=== PATIENT | male | born 2000 | race Caucasian/White ===

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

== ENCOUNTER 2021-12-04 04:34 | Emergency (ER) | payer BC ==
[2021-12-04] MEDS ORDERED: DEXAMETHASONE SOD PHOSPHATE 10 MG/1 ML VIAL IM ONE (04:58)
[2021-12-04] MEDS ORDERED: ACETAMINOPHEN 325 MG TABLET (FP) PO ONE (04:59)
[2021-12-04] MEDS ORDERED: KETOROLAC TROMETHAMINE 30 MG/1 ML VIAL IM ONE (04:59)
[2021-12-04] MEDS ORDERED: ACETAMINOPHEN 325 MG TABLET (FP) ONE (05:05)
[2021-12-04] MEDS ORDERED: DEXAMETHASONE SOD PHOSPHATE 10 MG/1 ML VIAL ONE (05:05)
[2021-12-04] MEDS ORDERED: KETOROLAC TROMETHAMINE 30 MG/1 ML VIAL ONE (05:05)
[2021-12-04 05:12] VITALS: BP 112/70; PULSE 88; TEMP 98.7; BMI 39.5
[2021-12-04] MEDS ORDERED: ACETAMINOPHEN 650 MG/20.3 ML ORAL SOLUTION (CUPS) ONE (05:13)
[2021-12-04 06:41] LABS: THROAT:GRP A STREP NOT DETECTED (NOTDETECTED)
== END 2021-12-04 06:51 | disposition home or self-care (01) ==
LOC: JER 04:34
PROC: 3E023GC Introduction of Other Therapeutic Substance into Muscle, Percutaneous Approach (ICD-10-PCS; principal; 2021-12-04)
DX: R07.0 Pain in throat (principal)
CPT/HCPCS: 0241U-QW; 87070; 87651; 99284-25; J1100

== ENCOUNTER 2021-12-25 13:59 | Emergency (ER) | payer BC ==
[2021-12-25 14:21] VITALS: BP 113/85; PULSE 82; TEMP 97.8; BMI 39.5
[2021-12-25] MEDS ORDERED: KETOROLAC TROMETHAMINE 30 MG/1 ML VIAL IM ONE (14:58)
[2021-12-25] MEDS ORDERED: KETOROLAC TROMETHAMINE 30 MG/1 ML VIAL ONE (15:01)
== END 2021-12-25 15:42 | disposition home or self-care (01) ==
LOC: JERFT 13:59
PROC: 3E0233Z Introduction of Anti-inflammatory into Muscle, Percutaneous Approach (ICD-10-PCS; principal; 2021-12-25)
DX: M79.675 Pain in left toe(s) (principal); W01.0XXA Fall on same level from slipping, tripping and stumbling without subsequent striking against object, initial encounter
CPT/HCPCS: 73660-TC-LT-FY; 99284-25

== ENCOUNTER 2022-05-26 15:32 | Emergency (ER) | payer BC ==
[2022-05-26 16:17] VITALS: BP 126/66; PULSE 93; RESP 18; TEMP 98.9; BMI 37.5
[2022-05-26 18:57] LABS: THROAT:GRP A STREP NOT DETECTED (NOTDETECTED)
== END 2022-05-26 19:22 | disposition home or self-care (01) ==
LOC: JER 15:32
DX: R05.1 Acute cough (principal); J02.9 Acute pharyngitis, unspecified; R68.83 Chills (without fever); M79.10 Myalgia, unspecified site
CPT/HCPCS: 0241U-QW; 87651; 99283-25

== ENCOUNTER 2022-07-28 22:51 | Emergency (ER) | payer OTHER, BC ==
[2022-07-28 22:58] VITALS: BP 142/83; PULSE 71; RESP 19; TEMP 98.1; BMI 36.9
== END 2022-07-29 02:37 | disposition home or self-care (01) ==
LOC: JER 22:51 → JERFT 22:51 → JER 07-29 02:37
DX: S60.111A Contusion of right thumb with damage to nail, initial encounter (principal); W22.8XXA Striking against or struck by other objects, initial encounter
CPT/HCPCS: 73130-TC-RT-FY; 99283-25

== ENCOUNTER 2023-03-06 19:54 | Emergency (ER) | payer OTHER, BC ==
[2023-03-06 20:01] VITALS: BP 142/84; PULSE 102; RESP 19; TEMP 98.6; BMI 37.5
[2023-03-06] MEDS ORDERED: KETOROLAC TROMETHAMINE 30 MG/1 ML VIAL IM ONE (20:23)
[2023-03-06] MEDS ORDERED: KETOROLAC TROMETHAMINE 15 MG/ML VIAL ONE (20:30)
== END 2023-03-06 21:36 | disposition home or self-care (01) ==
LOC: JERFT 19:54
PROC: 3E0233Z Introduction of Anti-inflammatory into Muscle, Percutaneous Approach (ICD-10-PCS; principal; 2023-03-06)
DX: J02.9 Acute pharyngitis, unspecified (principal); R05.9 Cough, unspecified; R09.81 Nasal congestion; J06.9 Acute upper respiratory infection, unspecified
CPT/HCPCS: 87651; 99284-25

== ENCOUNTER 2023-07-27 08:53 | Emergency (ER) | payer BC, OTHER ==
[2023-07-27 09:17] VITALS: BP 133/65; PULSE 79; RESP 20; TEMP 98.5; BMI 38.6
[2023-07-27] MEDS ORDERED: DEXAMETHASONE SOD PHOSPHATE 10 MG/1 ML VIAL IM ONE (09:40)
[2023-07-27] MEDS ORDERED: DEXAMETHASONE SOD PHOSPHATE 10 MG/1 ML VIAL ONE (10:02)
== END 2023-07-27 10:54 | disposition home or self-care (01) ==
LOC: JERFT 08:53
PROC: 3E023GC Introduction of Other Therapeutic Substance into Muscle, Percutaneous Approach (ICD-10-PCS; principal; 2023-07-27)
DX: R09.81 Nasal congestion (principal); R05.9 Cough, unspecified; R09.89 Other specified symptoms and signs involving the circulatory and respiratory systems; J06.9 Acute upper respiratory infection, unspecified; R09.82 Postnasal drip; Z20.822 Contact with and (suspected) exposure to COVID-19
CPT/HCPCS: 0241U-QW; 99284-25; J1100

== ENCOUNTER 2023-12-11 07:36 | Emergency (ER) | payer BC ==
[2023-12-11 07:42] VITALS: BP 124/78; PULSE 111; RESP 18; TEMP 98.8; BMI 38.6
[2023-12-11] MEDS ORDERED: KETOROLAC TROMETHAMINE 30 MG/1 ML VIAL ONE (08:26)
[2023-12-11] MEDS: KETOROLAC TROMETHAMINE 30 MG/1 ML VIAL IM ONE (08:30)
== END 2023-12-11 09:31 | disposition home or self-care (01) ==
LOC: JERFT 07:36
PROC: 3E0233Z Introduction of Anti-inflammatory into Muscle, Percutaneous Approach (ICD-10-PCS; principal; 2023-12-11)
DX: S93.401A Sprain of unspecified ligament of right ankle, initial encounter (principal); W10.9XXA Fall (on) (from) unspecified stairs and steps, initial encounter; X50.1XXA Overexertion from prolonged static or awkward postures, initial encounter; Y93.01 Activity, walking, marching and hiking
CPT/HCPCS: 73610-TC-RT-FY; 73630-TC-RT-FY; 99284-25